=== PATIENT | female | born 1990 | race African-American/Black ===

== ENCOUNTER 2022-01-20 10:42 | Inpatient (IN) | payer OTHER ==
[~2022-01-20] VITALS: Ht 154.9 cm; Wt 63.6 kg
[~2022-01-20 10:42] MED LIST: BCP TD; DEPO-PROVER150 MG/M1 IM; IBU600 MG PO; NORCO 325 MG-51 TAB PO; PENICILLIN V500 MG PO; PERCOCET 325 MG1 TA2 PO; PRENATAL1 TA1 PO
[2022-01-23] VITALS (32 sets, daily range): BP systolic 108–151; BP diastolic 63–94; PULSE 70–99; TEMP 98–98.9
--- NOTE | 2022-01-23 06:25 | NUR ---
0625 - PATIENT AMBULATORY TO LDR5. PATIENT ORIENTED TO ROOM. PATIENT CHANGES INTO GOWN. 0640 - PLAN OF CARE REVIEWED AND PATIENT AGREEABLE TO PLAN. PATIENT DENIES LEAKING OF FLUID, CONTRACTIONS OR BLOODY SHOW. PATIENT REPORTS GOOD MOVEMENT. PATIENT PLACED ON MONITOR. 0655 - IV PLACED AND LR INIATIATED. 0710 - CONSENTS REVIEWED AND SIGNED. 0720 - SVE PERFORMED. /3. MADHU CARE PERFORMED. PATIENT REPOSITIONED. CARE ONGOING.
[2022-01-23] MEDS ORDERED: PRENATAL TABLET PO (06:50)
[2022-01-23 07:20] LABS: BASO # 0.1 K/mm3 (0.0-0.2); BASO % 0.6 % (0.0-2.0); EOS # 0.1 K/mm3 (0.0-0.7); EOS % 1.5 % (0.0-4.0); GRAN # 6.1 K/mm3 (1.4-6.5); GRAN % 75.2 % (42.2-75.2); HEMATOCRIT 30.9 % (37.0-47.0); HEMOGLOBIN 10.1 g/dl (12.5-16.0); LYMPH # 1.1 K/mm3 (1.2-3.4); MEAN CELL VOLUME 87 fl (80.0-100.0); MEAN CORPUSCULAR HEMOGLOBIN 29 pg (27-31); MEAN CORPUSCULAR HGB CONC 33 g/dl (33.0-37.0); MEAN PLATELET VOLUME 9.8 fl (7.4-10.4); MONO # 0.7 K/mm3 (0.1-0.6); MONO % 8.2 % (1.7-9.3); PLATELET COUNT 214 K/mm3 (130-400); RED BLOOD COUNT 3.55 M/mm3 (4.10-5.30); REDCELL DISTRIBUTION WIDTH-CV 14.3 % (11.5-14.5)
--- NOTE | 2022-01-23 08:25 | NUR ---
0825 - MD JUAN CARLOS AT BEDSIDE. PLAN OF CARE DISCUSSED. 0827 - BRP - PATIENT VOIDS. 0832 - SVE PERFORMED BY MD JUAN CARLOS. /2. 08 - AROM PERFORMED BY MD JUAN CARLOS. CLEAR FLUID NOTED. MADHU CARE PERFORMED. PATIENT EDUCATED ON 30MIN BEDREST AFTER AROM. MONITORING AND PITOCIN GTT CONTINUES. CARE ONGOING.
--- NOTE | 2022-01-23 10:50 | NUR ---
Farhat RANGEL MD ON UNIT. MD UPDATED ON PATIENT STATUS, LATEST SVE AND STRIP WITH EARLY DECELS REVIEWED BY MD. CARE ONGOING.
--- NOTE | 2022-01-23 12:02 | NUR ---
1202 - MD JUAN CARLOS AT BEDSIDE. SVE PERFORMED BY . -/-1. PATIENT REPOSITIONED. MADHU CARE PERFORMED. 1231 - MD JUAN CARLOS AT BEDSIDE. SVE PERFORMED BY AND ANTERIOR LIP FOUND TO BE PRESENT. RN INSTRUCTED TO PLACE PATIENT IN PUSHING POSITION. AFTER REPOSITIONING, UPON RECHECK BY MD, PATIENT COMPLETE. 1242 - PATIENT INSTRUCTED ON PUSHING WITH CONTRACTIONS. 1243 - PATIENT BEGINS PUSHING WITH CONTRACTIONS. GOOD MATERNAL EFFORT. MD REMAINS AT BEDSIDE. NURSERY RN AT BEDSIDE. 1250 - PATIENT CONTINUES PUSHING WITH CONTRACTIONS WITH GOOD EFFORT. 1254 - SPONTANEOUS DELIVERY OF FEMALE INFANT. NURSERY RN ASSUMES CARE OF . 1257 - SPONTANEOUS DELIVERY OF INTACT PLACENTA. FUNDAL MASSAGE PERFORMED BY . PITOCIN BOLUS INITIATED BY RN. PERINEUM INTACT. MADHU CARE PERFORMED. PATIENT REPOSITIONED. BLEEDING WNL. CARE ONGOING.
[2022-01-24 03:00] VITALS: BP 112/65; PULSE 72; TEMP 97.8
[2022-01-24 06:55] VITALS: BP 118/79; PULSE 74; TEMP 98.1
[2022-01-24] MEDS ORDERED: IBU600 MG PO (09:05)
--- NOTE | 2022-01-24 09:10 | NUR ---
Initial visit; Patient than [employer] for offering congratulations and God's blessings for the of her daughter. [employer] thanked Mom for choosing our hospital about which she stated her experience here has been a wonderful one.
[2022-01-24 11:40] VITALS: BP 120/66; PULSE 95; TEMP 97.7
--- NOTE | 2022-01-24 14:55 | NUR ---
1445 - PATIENT DISCHARGED FROM HOSPITAL WITH ACCOMPANIED BY SPOUSE. DISCHARGE INSTRUCTIONS PROVIDED.
== END 2022-01-24 14:45 | disposition home or self-care (01) | DRG 807 ==
LOC: OB 01-23 06:22 → LDR 01-23 06:22 → OB 01-23 16:00
PROVIDERS: ADMIT Obstetrics & Gynecology
PROC: 10E0XZZ Delivery of Products of Conception, External Approach (ICD-10-PCS; principal; 2022-01-23)
PROC: 10907ZC Drainage of Amniotic Fluid, Therapeutic from Products of Conception, Via Natural or Artificial Opening (ICD-10-PCS; 2022-01-23)
DX: O80 Encounter for full-term uncomplicated delivery (principal); Z37.0 Single live birth; Z3A.40 40 weeks gestation of pregnancy; Z23 Encounter for immunization
CPT/HCPCS: J2590; J7120